=== PATIENT | female | born 1960 | race Caucasian/White ===

== ENCOUNTER 2019-02-09 18:22 | Inpatient (IN) ==
[2019-02-09] MEDS ORDERED: LABETALOL IV ONE (18:57)
[2019-02-09] MEDS ORDERED: ASPIRIN PO ONE (18:58)
[2019-02-09] MEDS ORDERED: LABETALOL ONE (19:02)
[2019-02-09 19:09] LABS: HEMATOCRIT 35.8 % (37.0-47.0); RBC 3.97 XMIL (4.2-5.4); WBC 9.69 X1000 (4.8-10.8)
[2019-02-09 19:10] LABS: BASO# 0.04 X1000 (0.0-0.2); BASO% 0.4 % (0.0-0.8); EOS# 0.32 X1000 (0.0-0.7); EOS% 3.3 % (0.0-10.0); IMM GRAN# 0.03 X1000 (0.0-0.04); IMM GRAN% 0.3 % (0.0-0.5); LYMPH# 2.99 X1000 (1.2-3.4); LYMPH% 30.9 % (20.5-51.1); MCH 30.2 PG (27-31); MCHC 33.5 g/dL (33-37); MCV 90.2 FL (81-99); MONO# 0.86 X1000 (0.11-0.59); MONO% 8.9 % (1.7-9.3); MPV 11.1 FL (7.4-10.4); NEUT# 5.45 X1000 (1.4-6.5); NEUT% 56.2 % (42.2-75.2); PLT 288 X1000 (130-400)
[2019-02-09 19:18] LABS: INR 1.23; PROTIME 16.1 Seconds (11.0-16.0)
[2019-02-09 19:48] LABS: PTT > 200.0 Seconds (22.3-41.8)
[2019-02-09 19:56] LABS: AGAP 13; ALBUMIN 4.1 g/dL (3.5-5.0); ALKALINE PHOSPHATASE 81 U/L (32-104); BUN 10 mg/dL (8-22); CALCIUM 8.9 mg/dL (8.8-10.2); CHLORIDE 105 mmol/L (98-107); COSMO 283; CREATININE 0.9 mg/dL (0.5-0.9); ESTIMATED GFR > 60; GLUCOSE 115 mg/dL (70-104); GOT 20 U/L (10-30); GPT 14 U/L (10-36); POTASSIUM 4.7 mmol/L (3.5-5.1); SODIUM 142 mmol/L (136-145); TCO2 25 mmol/L (25-35); TOTAL PROTEIN 7.7 g/dL (6.3-8.3)
[2019-02-09] MEDS ORDERED: NS 1,000 ML IV ONE ×2 (20:39→22:21)
--- NOTE | 2019-02-09 20:48 | Diag Imaging Result Doc PS360 ---
EXAM: CHEST-2 VIEWS INDICATION: CP TECHNIQUE: 2 views COMPARISON: 10/03/2017 FINDINGS: The right chest port is in stable position. The lungs are grossly clear. There is no discrete pleural fluid collection or pneumothorax. The cardiomediastinal silhouette and central vasculature are grossly unremarkable. IMPRESSION: No evidence of acute pathology by plain radiograph. Electronically signed by Nitin Alonzo 02/09/2019 8:46 PM
[2019-02-09] MEDS ORDERED: APRESOLINE ONE (21:10)
[2019-02-09] MEDS ORDERED: APRESOLINE PO ONE ×2 (21:12→21:15)
[2019-02-09] MEDS ORDERED: APRESOLINE IV ONE (21:18)
[2019-02-09] MEDS ORDERED: ZOFRAN IV ONE (21:19)
[2019-02-09 21:32] LABS: PTT 27.7 Seconds (22.3-41.8)
[2019-02-09 21:41] LABS: PROTIME 13.7 Seconds (11.0-16.0)
--- NOTE | 2019-02-09 21:51 | PROVIDER DOCUMENTATION ---
This chart was entered by Lizbeth Colin Scribe, acting as scribe for Allison Hampton MD. HPI-General Adult - General Chief Complaint: General Adult Stated Complaint: BP, CHEST PAIN, N/V Time Seen by Provider: 02/09/19 19:10 Source: patient Allergies/Adverse Reactions: Patient Allergies Allergy/AdvReac Type Severity Reaction Status Date / Time moxifloxacin HCl * Allergy Severe ANAPHYLAXIS Verified 01/27/18 00:17 [From Avelox] doxycycline Allergy SWELLING Verified 01/27/18 00:17 latex Allergy Unknown Verified 01/27/18 00:17 pregabalin [From Lyrica] Allergy SWELLING Verified 01/27/18 00:17 sulfamethoxazole Allergy Unknown Verified 01/27/18 00:17 [From Septra] tramadol Allergy Unknown Verified 01/27/18 00:17 trimethoprim [From Septra] Allergy Unknown Verified 01/27/18 00:17 gabapentin [From Neurontin] AdvReac Intermediate dilurim Verified 01/27/18 00:17 promethazine AdvReac Mild dilerium Verified 01/27/18 00:17 codeine AdvReac NAUSEA/VOMI Verified 01/27/18 00:17 TING epinephrine AdvReac Unknown Verified 01/27/18 00:17 hydrocodone AdvReac NAUSEA/VOMI Verified 01/27/18 00:17 TING meperidine HCl * AdvReac NAUSEA/VOMI Verified 01/27/18 00:17 [From Demerol] TING Sulfa (Sulfonamide AdvReac Unknown Verified 01/27/18 00:17 Antibiotics) Home Medications: Home Medication List Medication Instructions Recorded Confirmed Last Taken Type Estradiol [Estrace] 1 mg PO HS 05/16/12 01/27/18 02/19/17 20:00 History Levothyroxine [Synthroid] 100 microgm PO DAILY 05/16/12 01/27/18 02/20/17 07:00 History Metoprolol Succinate E.r. [Toprol 50 mg PO DAILY 05/16/12 01/27/18 02/19/17 20:00 History Xl] Clonazepam [Klonopin] 0.5 mg PO HS 01/16/15 01/27/18 02/19/17 20:00 History Duloxetine [Cymbalta] 60 mg PO QHS 01/16/15 01/27/18 02/19/17 20:00 History Magnesium Cl D.r. [Slow-Mag] 64 mg PO DAILY 01/16/15 01/27/18 02/19/17 20:00 History Methyldopa 250 mg PO DAILY 01/16/15 01/27/18 02/19/17 20:00 History Potassium Gluconate 500 mg PO DAILY 01/16/15 01/27/18 02/19/17 20:00 History Clopidogrel Bisulfate [Plavix] 75 mg PO DAILY 12/21/15 01/27/18 02/19/17 20:00 History Morphine Sulfate [Morphine Sulfate 15 mg PO TID 12/21/15 12/18/17 02/20/17 08:00 History ER] Tizanidine HCl [Zanaflex] 2 tab PO TID 05/27/16 01/27/18 02/20/17 07:00 History 4 mg Amoxicillin/Pot Clavulanate 875 mg PO Q12HR #14 tab 01/26/18 01/27/18 Unknown Rx [Augmentin] Clindamycin [Cleocin] 300 mg PO Q6HR #30 cap 01/27/18 Unknown Rx Pantoprazole [Protonix] 40 mg PO DAILY@0700 01/27/18 01/27/18 Unknown History Azithromycin [Zithromax] 500 mg PO DAILY #7 tab 01/28/18 Unknown Rx - History of Present Illness -Gen Adult Nature of Presenting Problems: pt is a 59 yr old female presenting with complaint of elevated BP, headache, nausea and vomiting, pt reports ongoing since 01/25/19 after receiving immunoglo blin therapy for CIPD. pt reports she normally has 3 day headache and fatigue associated with therapy but this time is worse and longer than normal. pt reports feeling flu like symptoms since 01/25. pt has not reported to her neurologist or PCP. pt reports no improvement of blood pressure with additional doses of catapres. pt denies any chest pain or shortness of breath. pt reports her blood pressure is typically low in the morning but in the evening it is normally elevated. pt reports today BP kasey at 1200 instead. Location of Pain/Injury: reports: head. denies: chest Pain Radiation: reports: no radiation Quality of Pain: reports: throbbing Severity: reports: moderate Onset/Duration: reports: other (01/25/19) Timing: reports: still present, changing over time Context/Activities at Onset: reports: other (immunoglobulin therapy received) Modifying Factors: improves with: other medication (catapres x 2 without relief) Associated Symptoms: reports: fatigue, headaches, muscle aches, nausea, vomiting . denies: cough, diarrhea, fever/chills, shortness of breath Similar Symptoms Previously?: Yes Recently seen or treated by another doctor?: No Review of Systems - Adult - REVIEW OF SYSTEMS - ADULT Constitutional: reports: fatique. denies: fever Eyes: reports: no symptoms reported Ears, Nose, Mouth & Throat: denies: ear pain, sinus problem, throat pain Cardiovascular: denies: chest pain, palpitations, syncope Respiratory: denies: cough, shortness of breath Gastrointestinal: reports: nausea, vomiting. denies: abdominal pain, diarrhea Genitourinary: denies: dysuria, frequency, flank pain Musculoskeletal: denies: back pain, joint pain, neck pain Integumentary: reports: no symptoms reported Neurological: reports: headache/migraines. denies: dizziness/vertigo, seizure, syncope Psychiatric: reports: no symptoms reported Endocrine: reports: no symptoms reported Hematologic/Lymphatic: reports: no symptoms reported Allergic/Immunologic: reports: no symptoms reported All Other Systems: Reviewed and Negative Past History - Adult - PAST MEDICAL HISTORY-ADULT Review of Records: reports: Old Records Reviewed, Nursing Assessment Review, Medications Reviewed, Social history reviewed & non-contributory. Major Childhood Illnesses: reports: denies history Cardiovascular: reports: CAD, HTN, CA Respiratory: reports: asthma, COPD Gastrointestinal: reports: GERD Obstetrical/Gynecological: reports: denies history Genitourinary: reports: denies history Musculoskeletal: reports: chronic pain, fibromyalgia, other fractures (left ankle fracture) Neurological: reports: degenerative disease, TIA, other (CIDP) Psychiatric: reports: denies history Endocrine/Immune: reports: denies history Other Conditions: reports: denies history - PRIOR SURGERIES/PROCEDURES Surgical/Procedure History: reports: hernia repair, orthopedic (extremity), other (esophageal banding) - PRIOR HOSPITALIZATIONS Prior Hospitalizations: reports: for similar symptoms - IMMUNIZATION STATUS Childhood Immunizations: See Nurse Assessment Flu Vaccine: See Nurse Assessment - FAMILY HISTORY Family History: reviewed, not pertinent - SOCIAL HISTORY Smoking: denies Substance Use: denies Living Situation: family Physical Exam-General - PHYSICAL EXAM-ADULT Initial Vital Signs Reviewed: Yes - CONSTITUTIONAL General Appearance: appears well, alert, no apparent distress - EYES Eyes: PERRL/EOMI - HEAD, EARS, NOSE, MOUTH & THROAT HENMT: normocephalic/atraumatic, moist mucous membranes, normal ENT inspection - NECK Neck: non-tender, full range of motion, supple, normal inspection - RESPIRATORY Respiratory: chest non-tender, lungs clear, normal breath sounds - CARDIOVASCULAR Cardiovascular: normal peripheral pulses, tachycardia - GASTROINTESTINAL (ABDOMEN) Abdominal Exam: normal bowel sounds, non tender, soft - LYMPHATIC Lymphatic: no adenopathy - MUSCULOSKELETAL Back Exam: normal inspection Extremity: normal range of motion, non-tender, normal inspection - SKIN Integumentary: normal color, normal turgor, warm/dry - NEUROLOGIC Neurologic: grossly normal - PSYCHIATRIC Psych/Mental Status: normal mood/affect Progress - PLAN OF CARE/RESULTS Progress/Plan/Lab Results: Vital Signs - 8 hr 02/09/19 18:26 Temperature 98.4 F Pulse Rate 109 H Respiratory Rate 18 Blood Pressure 185/99 O2 Sat by Pulse Oximetry 98 Laboratory Results - last 24 hr 02/09/19 02/09/19 02/09/19 18:45 18:45 18:45 WBC RBC Hgb Hct MCV MCH MCHC RDW Std Deviation Plt Count MPV Immature Gran % (Auto) Neut % (Auto) Lymph % (Auto) [place] % (Auto) Eos % (Auto) Baso % (Auto) Immature Gran # (Auto) Neut # (Auto) Lymph # (Auto) [place] # (Auto) Eos # (Auto) Baso # (Auto) PT 16.1 H INR 1.23 PTT (Actin FS) > 200.0 H* Sodium Potassium Chloride Carbon Dioxide Anion Gap BUN Creatinine Estimated GFR/1.73 m2 BUN/Creatinine Ratio Glucose Calculated Osmolality Calcium Total Bilirubin AST ALT Alkaline Phosphatase Creatine Kinase 103 Troponin T < 0.010 Total Protein Albumin Globulin Albumin/Globulin Ratio 02/09/19 02/09/19 18:45 18:45 WBC 9.69 RBC 3.97 L Hgb 12.0 Hct 35.8 L MCV 90.2 MCH 30.2 MCHC 33.5 RDW Std Deviation 13.0 Plt Count 288 MPV 11.1 H Immature Gran % (Auto) 0.3 Neut % (Auto) 56.2 Lymph % (Auto) 30.9 [place] % (Auto) 8.9 Eos % (Auto) 3.3 Baso % (Auto) 0.4 Immature Gran # (Auto) 0.03 Neut # (Auto) 5.45 Lymph # (Auto) 2.99 [place] # (Auto) 0.86 H Eos # (Auto) 0.32 Baso # (Auto) 0.04 PT INR PTT (Actin FS) Sodium 142 Potassium 4.7 Chloride 105 Carbon Dioxide 25 Anion Gap 13 BUN 10 Creatinine 0.9 Estimated GFR/1.73 m2 > 60 BUN/Creatinine Ratio 11 Glucose 115 H Calculated Osmolality 283 Calcium 8.9 Total Bilirubin 0.20 AST 20 ALT 14 Alkaline Phosphatase 81 Creatine Kinase Troponin T Total Protein 7.7 Albumin 4.1 Globulin 4.0 Albumin/Globulin Ratio 1.0 Orders Category Date Time Status cxr [CHEST-2 VIEWS] [RAD] Stat Exams 02/09/19 18:36 Taken CBC WITH ELECTRONIC DIFF [HEME] Stat Lab 02/09/19 18:45 Completed CK PROFILE [SP CHEM] Stat Lab 02/09/19 18:45 Completed COMPREHENSIVE METABOLIC PANEL [CHEM] Stat Lab 02/09/19 18:45 Completed PROTIME WITH INR [COAG] Stat Lab 02/09/19 18:45 Completed PTT [COAG] Stat Lab 02/09/19 18:45 Completed TROPONIN T Stat Lab 02/09/19 18:45 Completed Aspirin Med 02/09/19 18:58 Discontinued 325 mg PO NOW ONE Labetalol Med 02/09/19 18:57 Discontinued 10 mg IV NOW ONE Labetalol Med 02/09/19 19:02 Discontinued 100 mg .ROUTE .STK-MED ONE Pt with elevated BP given labetalol prior to my arrival. Little to no change. Given hydralazine with some change but they BP kasey again and chest pain started. EKG on start of chest pain showing no acute changes and troponin was normal. She additionally has started to have intractable nausea and vomiting. Patient was also given ativan as she does appear somewhat anxious but this made no change. Her HR is elevated in the 120s but she has been like that before in the past. 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 She also contrinues to ask for pain medications and states that she takes xanaflex at home. Given that we are unable to get BP down and patient has intractable NV will admit. Spoke to Dr Mahoney who accepted patient for admission. Wanted her started on Nitro drip. Result Diagrams: 02/09/19 18:45 02/09/19 18:45 - EKG 1 Time of EKG reading by physician:: 22:00 EKG Read and Signed by:: Allison Hampton EKG Interpretation (*Must complete 3 of following elements*): Abnormal Rate: 121 Rhythm: sinus tachycardia Sledge: normal QRS: normal [place] Interval: normal ST Wave: non-specific ST changes Prior EKG Comparison: unchanged from prior - XRAY 1 XRAY Study: Chest Impression: Normal ( Signed EXAM: CHEST-2 VIEWS INDICATION: CP TECHNIQUE: 2 views COMPARISON: 10/03/2017 FINDINGS: The right chest port is in stable position. The lungs are grossly clear. There is no discrete pleural fluid collection or pneumothorax. The cardiomediastinal silhouette and central vasculature are grossly unremarkable. IMPRESSION: No evidence of acute pathology by plain radiograph. Electronically signed by Nitin Alonzo 02/09/2019 8:46 PM 02/09/192045 Interpreting Physician: Nitin Alonzo MD Dictated Date/Time: 02/09/192044 cc: Sharyn Gamez; Se Muir) - CONSULTS/PCP/HOSPITALIST Notification #1 *Consult/PCP/Hospitalist*: Swetha Time Discussed: 23:44 Consult Disposition: Admit Departure - Departure Date of Disposition Decision: 02/09/19 Time of Disposition Decision: 23:44 DIAGNOSIS: Intractable nausea and vomiting, Malignant hypertensive urgency Disposition: ADMITTED INPATIENT 09 Certified Medical Emergency: Emergent Condition: Fair - Critical Care Note This patient required my direct & personal management of CC.: Yes Total Time (mins): 90 Critical Care Statement: This patient required my direct personal management to treat or rule out processes, the absence of which, could potentiallly result in sudden, clinically significant life or limb threatening deterioration. Attestation - Physician/ RONDA Attestation Patient care was provided by Advanced Practice Provider:: No The physician spent face to face time with patient:: Yes Advanced Practice Provider documentation review:: Supervising physician onsite and consulted in the evaluation and care of this patient. The physician did have a face to face encounter with the patient. This chart was documented by the indicated scribe, (Lizbeth Colin, [place]) and accurately reflects the services I performed and decisions made by me, Allison Hampton MD, as attested by the provider's signature.
[2019-02-09] MEDS ORDERED: ATIVAN IV ONE (22:22)
--- NOTE | 2019-02-09 22:34 | EKG Report ---
Test Performed on : 02/09/2019 6:36:14 PM Test Reason : cp Blood Pressure : / mmHG Vent. Rate : 093 BPM Atrial Rate : 093 BPM P-R Int : 136 ms QRS Dur : 080 ms QT Int : 362 ms P-R-T Axes : 034 000 047 degrees QTc Int : 450 ms Normal sinus rhythm. Inferior infarct (cited on or before 08-NOV-2009) Abnormal ECG When compared with ECG of 03-OCT-2017 17:52, No significant change was found Unconfirmed Result
[2019-02-09 23:32] LABS: UR AMPHETAMINES QUAL NONE DETECTED (NONE DETECT); UR BARBITUATES QUAL PRESUMPTIVE POSITIVE (NONE DETECT); UR BENZODIAZEPIN QUAL NONE DETECTED (NONE DETECT); UR CANNABINOIDS QUAL NONE DETECTED (NONE DETECT); UR COCAINE QUAL NONE DETECTED (NONE DETECT); UR METHADONE QUAL NONE DETECTED (NONE DETECT); UR METHAMPHETAMINE QUAL NONE DETECTED (NONE DETECT); UR OPIATES QUAL PRESUMPTIVE POSITIVE (NONE DETECT); UR OXYCODONE QUAL NONE DETECTED (NONE DETECT); UR PCP QUAL NONE DETECTED (NONE DETECT); UR PROPOXYPHENE QUAL NONE DETECTED (NONE DETECT); UR TCA QUAL NONE DETECTED (NONE DETECT)
[2019-02-09 23:40] LABS: BILIRUBIN URINE NEGATIVE (NEGATIVE); BLOOD URINE NEGATIVE (NEGATIVE); CLARITY CLEAR (CLEAR); COLOR YELLOW; KETONE URINE TRACE mg/dL (NEGATIVE); LEUKOCYTES URINE NEGATIVE (NEGATIVE); NITRITE URINE NEGATIVE (NEGATIVE); PROTEIN URINE TRACE mg/dL (NEGATIVE); SP GRAVITY URINE 1.005; UROBILINOGEN URINE NORMAL
[2019-02-09] MEDS ORDERED: FLEXERIL PO ONE (23:41)
[2019-02-09 23:43] LABS: URINE BACTERIA 1+ /HFP; URINE CAST NONE SEEN /LPF; URINE CRYSTAL NONE SEEN /HPF; URINE EPITHELIAL CELLS <10 /HPF (<10); URINE RBC <10 /HPF (<10); URINE SOURCE CLEAN CATCH; URINE WBC NS /HPF (<10); URINE YEAST NONE SEEN /HPF
[2019-02-09] MEDS ORDERED: PHENERGAN IM ONE (23:45)
[2019-02-10] MEDS: NIPRIDE 100 MG in D5W 250 ML IV SCH ×4 (00:31→05:08)
[2019-02-10] MEDS ORDERED: FLEXERIL ONE (03:46)
[2019-02-10] MEDS ORDERED: SODIUM CHLORIDE 0.9% INJ ONE (04:59)
[2019-02-10] MEDS ORDERED: PEPCID IV ONE (04:59)
--- NOTE | 2019-02-10 07:27 | EKG Report ---
Test Performed on : 02/10/2019 07:01:53 AM Test Reason : ST Blood Pressure : / mmHG Vent. Rate : 149 BPM Atrial Rate : 149 BPM P-R Int : 112 ms QRS Dur : 078 ms QT Int : 292 ms P-R-T Axes : 033 005 065 degrees QTc Int : 459 ms Sinus tachycardia. Possible Left atrial enlargement Nonspecific ST abnormality Abnormal ECG When compared with ECG of 09-FEB-2019 21:57, (Unconfirmed) No significant change was found Unconfirmed Result
[2019-02-10] MEDS ORDERED: PHENERGAN IM ONE ×2 (07:28→08:02)
[2019-02-10] MEDS ORDERED: LOPRESSOR PO ONE ×2 (07:29→08:02)
[2019-02-10] MEDS ORDERED: NS 1,000 ML IV ONE ×4 (07:37→15:03)
--- NOTE | 2019-02-10 08:36 | EKG Report ---
Test Performed on : 02/09/2019 9:57:24 PM Test Reason : cp Blood Pressure : / mmHG Vent. Rate : 121 BPM Atrial Rate : 121 BPM P-R Int : 136 ms QRS Dur : 078 ms QT Int : 330 ms P-R-T Axes : 033 003 029 degrees QTc Int : 468 ms Sinus tachycardia. Possible Left atrial enlargement Nonspecific ST abnormality Abnormal ECG When compared with ECG of 09-FEB-2019 18:36, (Unconfirmed) Criteria for Inferior infarct are no longer present Unconfirmed Result
[2019-02-10 08:43] LABS: BASO# 0.03 X1000 (0.0-0.2); BASO% 0.2 % (0.0-0.8); HEMATOCRIT 36.6 % (37.0-47.0); HEMOGLOBIN 12.8 g/dL (12.0-16.0); IMM GRAN# 0.05 X1000 (0.0-0.04); IMM GRAN% 0.3 % (0.0-0.5); LYMPH# 1.48 X1000 (1.2-3.4); LYMPH% 7.9 % (20.5-51.1); MCH 30.9 PG (27-31); MCV 88.4 FL (81-99); MONO# 1.01 X1000 (0.11-0.59); MONO% 5.4 % (1.7-9.3); MPV 10.9 FL (7.4-10.4); NEUT# 16.24 X1000 (1.4-6.5); NEUT% 86.2 % (42.2-75.2); PLT 336 X1000 (130-400); RBC 4.14 XMIL (4.2-5.4); RDW 13.3 % (11.5-14.5); WBC 18.81 X1000 (4.8-10.8)
--- NOTE | 2019-02-10 08:51 | HISTORY AND PHYSICAL ---
CHIEF COMPLAINT: Diarrhea since Friday, nausea and vomiting since 2 a.m. HISTORY OF PRESENT ILLNESS: Ms. 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 On Friday, she started with diarrhea and reports around 2 a.m., she started with the vomiting. She also reports that she fell 2 weeks ago, hit her head, and had some loss of consciousness for an unknown period of time. She reported to her neurologist's office, Dr. Rock. She reported they did a followup head CT and there were no acute changes. She also noted elevation in her blood pressure so she came to the ED at [place] where she was found to be hypertensive, 220s/100s. They did give her hydralazine, Ativan, and Lopressor with no relief from her blood pressure, and continued with nausea and vomiting. She was placed on a Nipride drip. She continues to be nauseous in the ED and is now tachycardic, so we are going to slowly wean off her Nipride, give her IV and Phenergan, and do a p.o. metoprolol until we can wean her off this Nipride and possible transfer to [facility] when beds are available for ICU or CIC with cardiac followup. PAST MEDICAL HISTORY: 1. Hypothyroidism. 2. Chronic bronchitis. 3. Mitral valve prolapse. 4. Dysautonomia. 5. Hypertension. 6. Coronary artery disease. 7. Gastroesophageal reflux disease. 8. TIA. 9. CIDP, on immunotherapy. PAST SURGICAL HISTORY: 1. Port placement. 2. Esophageal banding. 3. ORIF of the ankle. 4. Appendectomy. SOCIAL HISTORY: She is . No alcohol, tobacco, or illicit drug use. FAMILY HISTORY: Mother with diabetes, anemia, and hypertension. Brother with hypertension. Mother with CVA. ALLERGIES: 1. Avelox, anaphylaxis. 2. Doxycycline, swelling. 3. Latex. 4. Lyrica, swelling. 5. Septra. 6. Tramadol. 7. Neurontin, delirium. 8. Promethazine, delirium. 9. Codeine, nausea and vomiting. 10. Epinephrine. 11. Hydrocodone, nausea and vomiting. 12. Demerol, nausea and vomiting. 13. Sulfa, unknown. HOME MEDICATIONS: Have not been verified. REVIEW OF SYSTEMS: Twelve-point review of systems completely negative except for those mentioned in the HPI. The patient does report diarrhea, nausea, vomiting, chills, and headache. No chest pain. No shortness of breath. No palpitations. PHYSICAL EXAMINATION: VITAL SIGNS: Temperature is 98.4 degrees, heart rate is currently in the 150s, respirations 20, blood pressure was 150s/104, O2 is 97% on room air. GENERAL: Ms. Headley is an ill-appearing, 59-year-old, female who is lying on the stretcher in the ER, nauseous but in no acute distress. HEENT: Atraumatic, normocephalic. PERRL. NECK: Supple. Trachea midline. CARDIOVASCULAR: S1, S2 appreciated. No murmurs, gallops, rubs noted. RESPIRATORY: Lung sounds clear bilaterally. GASTROINTESTINAL: Soft, nontender, nondistended. Positive bowel sounds in 4 quadrants. EXTREMITIES: Lower extremities were negative for edema. The patient was moving all extremities well. No signs of clubbing or cyanosis. NEUROLOGIC: The patient is awake, alert, oriented. Followed commands. Answers all questions appropriately. DIAGNOSTIC DATA: Initial chest x-ray showed no evidence of acute pathology. Initial EKG, normal sinus rhythm. Followup EKG, sinus tachycardia at 149 beats per minute. LABORATORY DATA: White count 9, hemoglobin and hematocrit 12 and 35, platelet count is 288,000. Initial PTT was 200. After recheck, it was 27.7. She also had an elevated PT of 16.1. Recheck was 13. INR is 1. Sodium 142, potassium 4.7, BUN 10, creatinine 0.9, blood glucose is 115. Two sets of troponins have been negative. Toxicology screen was positive for opiates and barbiturates. ASSESSMENT AND PLAN: 1. Hypertensive urgency. The patient was placed on a Nipride drip. She does seem to be having some rebound tachycardia as well as some acceleration in her nausea and vomiting. We are going to try to wean that off at this time and then give her some oral and intravenous beta roxy. Admit her to [facility] or intensive care unit at [facility] with a cardiology consult. 2. Nausea, vomiting, diarrhea. We will continue with antiemetics. 3. Chronic inflammatory demyelinating polyneuropathy history, on immunotherapy with IVIG. 4. Coronary artery disease. 5. Chronic bronchitis. 6. Hypertension. 7. Dysautonomia. 8. Gastroesophageal reflux disease. 9. Transient ischemic attack. 10. Hypothyroidism. 11. Further recommendations to follow physician evaluation, laboratory and diagnostic data. ADDENDUM: at beside told ED staff this has happened before when she was withdrawing off of her zanaflex. Same reaction before with hypertension and tachycardia.. Dictated by DESIRE Barkley for Julian Posada MD cc: MD Se López
[2019-02-10 09:02] LABS: AGAP 21; ALBUMIN 4.6 g/dL (3.5-5.0); ALKALINE PHOSPHATASE 88 U/L (32-104); BUN 9 mg/dL (8-22); CALCIUM 9.3 mg/dL (8.8-10.2); CHLORIDE 102 mmol/L (98-107); COSMO 288; CREATININE 0.9 mg/dL (0.5-0.9); ESTIMATED GFR > 60; GLUCOSE 205 mg/dL (70-104); GOT 21 U/L (10-30); GPT 16 U/L (10-36); MAGNESIUM 1.3 mg/dL (1.5-2.7); POTASSIUM 3.7 mmol/L (3.5-5.1); SODIUM 142 mmol/L (136-145); TCO2 19 mmol/L (25-35)
[2019-02-10 09:39] LABS: LYMPHS 8 % (21-51); MONO 4 % (1-9); SEGS 88 % (42-75)
[2019-02-10] MEDS ORDERED: LOPRESSOR IV ONE (10:36)
[2019-02-10] MEDS ORDERED: CATAPRES PO SCH (13:00)
[2019-02-10] MEDS ORDERED: ZANAFLEX PO SCH (13:15)
[2019-02-10] MEDS ORDERED: ATIVAN IV ONE (13:30)
[2019-02-10] MEDS: ZOSYN 3.375 GM in NS 50 ML IV SCH ×2 (14:20→20:34)
[2019-02-10] MEDS ORDERED: LOPRESSOR IV PRN (14:29)
[2019-02-10] MEDS ORDERED: NS 1,000 ML ONE (14:58)
[2019-02-10] MEDS ORDERED: NEO-SYNEPHRINE 50 MG in NS 250 ML IV SCH (15:15)
[2019-02-10] MEDS ORDERED: LEVOPHED 8 MG in D5 1/2 NS 250 ML IV SCH (15:30)
[2019-02-10] MEDS: NS 1,000 ML IV SCH ×2 (15:40→19:14)
[2019-02-10 16:19] LABS: HEMOGLOBIN 10.2 g/dL (12.0-16.0); MCH 30.4 PG (27-31); MCV 89.3 FL (81-99); MPV 10.9 FL (7.4-10.4); RBC 3.36 XMIL (4.2-5.4); RDW 13.2 % (11.5-14.5); WBC 15.3 X1000 (4.8-10.8)
[2019-02-10 16:34] LABS: AGAP 11; ALKALINE PHOSPHATASE 65 U/L (32-104); BUN 9 mg/dL (8-22); CALCIUM 7.3 mg/dL (8.8-10.2); CHLORIDE 109 mmol/L (98-107); COSMO 280; CREATININE 0.9 mg/dL (0.5-0.9); ESTIMATED GFR > 60; GLUCOSE 130 mg/dL (70-104); GOT 17 U/L (10-30); GPT 10 U/L (10-36); MAGNESIUM 1.4 mg/dL (1.5-2.7); POTASSIUM 4.4 mmol/L (3.5-5.1); SODIUM 140 mmol/L (136-145); TCO2 21 mmol/L (25-35); TOTAL PROTEIN 5.6 g/dL (6.3-8.3)
--- NOTE | 2019-02-10 16:37 | PROGRESS NOTE ---
DATE: 02/10/2019 CRITICAL CARE NOTE: I was called to the ED secondary to the patient becoming hypotensive, 60s over 40s around 1500 hours. We initiated her on 2 L fluid bolus, initiating Al-Synephrine. After further speaking with the who is in the room, he did find her bottle of Zanaflex at home that she got filled, I believe on January 19. She had 180 tablets. There is only 1 left in the bottle. Ativan was given at 1419 and a dose of her Zanaflex at 1324. At [address] Posada was aware we were initiating Levophed (per poison control recommendations) and learning that she may have taken multilpe of Zanaflex, We have also called Poison Control. Rechecking EKG, CE, and others per EMR. Likely's ICU has now opened. We will be transferring [facility] to ICU. Dictated by DESIRE Barkley for Julian Posada MD cc: MD GONZALO López
[2019-02-10 16:48] LABS: ACETAMINOPHEN < 1.2 ug/mL (10-30); SALICYLATES < 3.00 mg/dL (3-10)
[2019-02-10 19:46] LABS: BILIRUBIN URINE NEGATIVE (NEGATIVE); BLOOD URINE 1+ (NEGATIVE); CLARITY CLEAR (CLEAR); COLOR YELLOW; KETONE URINE NEGATIVE (NEGATIVE); LEUKOCYTES URINE NEGATIVE (NEGATIVE); NITRITE URINE NEGATIVE (NEGATIVE); PROTEIN URINE TRACE mg/dL (NEGATIVE); UROBILINOGEN URINE NORMAL
[2019-02-10 19:58] LABS: URINE BACTERIA 1+ /HFP; URINE CAST NONE SEEN /LPF; URINE CRYSTAL NONE SEEN /HPF; URINE EPITHELIAL CELLS <10 /HPF (<10); URINE RBC <10 /HPF (<10); URINE SOURCE CATH; URINE YEAST NONE SEEN /HPF
[2019-02-10] MEDS: CYMBALTA PO SCH (20:37)
[2019-02-10] MEDS: ESTRACE PO SCH (20:37)
[2019-02-10] MEDS ORDERED: LOPRESSOR PO SCH (21:00)
[2019-02-10] MEDS ORDERED: KLONOPIN PO SCH (21:00)
--- NOTE | 2019-02-10 22:09 | HISTORY AND PHYSICAL ---
ADDENDUM: Patient seen and examined by myself. Full note dictated and discussed with nurse practitioner. The patient presented to the hospital with nausea and vomiting for the past couple of days. It seemed to continue to be worsening. Initially in the ER, blood pressures were 220s over 100s. She was placed on Nipride to keep her blood pressure lower, as nothing seems to be improving. The plan was to admit her to the hospital for hypertensive urgency as well as tachycardia. She continued to be difficult to treat. Her blood pressure actually dropped quite low, in the 50s and 60s systolic. It was at this point that her notes that she tends to overtake her Zanaflex, and apparently has taken an entire month's prescription of 4 mg 3 times daily in the past 10 days. Zanaflex certainly can cause rebound hypotension. We talked to Poison Control. We are going to place her on Levophed, which she has tolerated very well. Blood pressures are improving. We will place her in the ICU and follow course cc: Julian Posada MD MTDD
[2019-02-11] MEDS: ZOSYN 3.375 GM in NS 50 ML IV SCH ×4 (02:31→20:34)
[2019-02-11] MEDS: NS 1,000 ML IV SCH ×3 (02:31→20:35)
[2019-02-11] MEDS: SYNTHROID PO SCH ×2 (06:04→06:05)
[2019-02-11] MEDS: PROTONIX PO SCH (06:05)
[2019-02-11] MEDS ORDERED: APRESOLINE IV ONE (06:20)
[2019-02-11] MEDS: SLOW-MAG PO SCH (08:00)
[2019-02-11] MEDS: CATAPRES PO SCH ×3 (08:00→17:14)
[2019-02-11] MEDS ORDERED: ZOFRAN ODT PO PRN (08:38)
--- NOTE | 2019-02-11 08:40 | EKG Report ---
Test Performed on : 02/10/2019 3:27:30 PM Test Reason : ER Blood Pressure : / mmHG Vent. Rate : 074 BPM Atrial Rate : 074 BPM P-R Int : 124 ms QRS Dur : 074 ms QT Int : 494 ms P-R-T Axes : 037 031 088 degrees QTc Int : 548 ms Normal sinus rhythm. Nonspecific ST and T wave abnormality Prolonged QT Abnormal ECG When compared with ECG of 10-FEB-2019 07:01, (Unconfirmed) Vent. rate has decreased BY 75 BPM T wave inversion now evident in Anterior leads Unconfirmed Result
[2019-02-11] MEDS ORDERED: SYNTHROID PO SCH (09:00)
[2019-02-11] MEDS: PATIENT'S OWN MED PO SCH (09:28)
[2019-02-11] MEDS: ZANAFLEX PO SCH ×2 (09:37→17:14)
[2019-02-11] MEDS: TOPROL XL PO SCH (15:10)
--- NOTE | 2019-02-11 20:09 | PROGRESS NOTE ---
DATE: 02/11/2019 SUBJECTIVE: Patient notes that she is feeling a lot better. Denies any fevers, chills. Denies overtaking her Zanaflex. States she typically takes 24 mg a day. OBJECTIVE: Vital Signs: Temperature 98, pulse 99 to 130, BP 197/93. General: Patient is awake. She is much more alert and oriented. HEENT: Normocephalic. Neck: Supple. Cardiovascular: Regular rate. No murmurs. Chest: Clear and nonlabored. Abdomen: Soft. Extremities: Moves all extremities. ASSESSMENT: 1. Supraventricular tachycardia. Currently, her heart rate is at 99, but has been as elevated as 130s. We will continue to follow. 2. Hypertensive urgency. Blood pressures were elevated. We will restart her home medications for her blood pressure. Expect that her rebound hypertension was due to her acute withdrawal of Zanaflex. 3. Nausea and vomiting, appears improving. 4. Chronic inflammatory demyelinating polyneuropathy, by history. 5. Leukocytosis. 6. Chronic bronchitis. 7. Dysautonomia. 8. Fibromyalgia. PLAN: 1. Will continue patient in the hospital. 2. Will follow her blood pressures. 3. Will slowly restart her home medications. 4. Further orders as needed. cc: Julian Posada MD
[2019-02-11] MEDS: CYMBALTA PO SCH (20:34)
[2019-02-11] MEDS: ESTRACE PO SCH (20:36)
[2019-02-12] MEDS: ZANAFLEX PO SCH ×2 (01:03→11:00)
[2019-02-12] MEDS: ZOSYN 3.375 GM in NS 50 ML IV SCH ×2 (01:03→08:32)
[2019-02-12] MEDS: NS 1,000 ML IV SCH (05:05)
[2019-02-12 05:55] LABS: BASO# 0.03 X1000 (0.0-0.2); BASO% 0.2 % (0.0-0.8); EOS# 0.24 X1000 (0.0-0.7); EOS% 1.7 % (0.0-10.0); HEMATOCRIT 30.5 % (37.0-47.0); IMM GRAN# 0.04 X1000 (0.0-0.04); IMM GRAN% 0.3 % (0.0-0.5); LYMPH# 3.49 X1000 (1.2-3.4); LYMPH% 25.2 % (20.5-51.1); MCH 30.1 PG (27-31); MCHC 32.8 g/dL (33-37); MCV 91.9 FL (81-99); MONO# 1.26 X1000 (0.11-0.59); MONO% 9.1 % (1.7-9.3); MPV 11.2 FL (7.4-10.4); NEUT# 8.81 X1000 (1.4-6.5); NEUT% 63.5 % (42.2-75.2); PLT 251 X1000 (130-400); RBC 3.32 XMIL (4.2-5.4); RDW 14.5 % (11.5-14.5); WBC 13.87 X1000 (4.8-10.8)
[2019-02-12] MEDS: SYNTHROID PO SCH ×2 (06:01)
[2019-02-12] MEDS: PROTONIX PO SCH (06:01)
[2019-02-12 06:32] LABS: AGAP 11; ALBUMIN 3.3 g/dL (3.5-5.0); ALKALINE PHOSPHATASE 66 U/L (32-104); BUN 6 mg/dL (8-22); CALCIUM 7.7 mg/dL (8.8-10.2); CHLORIDE 112 mmol/L (98-107); COSMO 286; CREATININE 0.8 mg/dL (0.5-0.9); ESTIMATED GFR > 60; GLUCOSE 98 mg/dL (70-104); GOT 59 U/L (10-30); GPT 29 U/L (10-36); POTASSIUM 3.4 mmol/L (3.5-5.1); SODIUM 145 mmol/L (136-145); TCO2 23 mmol/L (25-35)
[2019-02-12] MEDS: PATIENT'S OWN MED PO SCH (08:32)
[2019-02-12] MEDS: SLOW-MAG PO SCH (08:32)
[2019-02-12] MEDS: TOPROL XL PO SCH (08:33)
[2019-02-12] MEDS: CATAPRES PO SCH (08:33)
[2019-02-12 13:18] VITALS: BP 115/65
--- NOTE | 2019-02-13 05:48 | DISCHARGE SUMMARY ---
ADMISSION DATE: 02/10/2019 DISCHARGE DATE: 02/12/2019 DISCHARGE DIAGNOSES: 1. Nausea, vomiting, appears resolved. 2. Hypertensive urgency, resolved. 3. Zanaflex withdrawal, resolved. 4. Hypothyroidism, stable. 5. Mitral valve prolapse. 6. Dysautonomia. 7. Hypertension. 8. Known coronary artery disease. 9. Chronic reflux. DISCHARGE MEDICATIONS: No changes were made on patient's home medications as noted on her discharge medication list. CONSULTATIONS: None. PROCEDURES: None. BRIEF HOSPITAL COURSE: The patient is a 59-year-old female who presented to the hospital with hypertensive emergency. This was felt to be secondary to Zanaflex withdrawal. She was placed initially on Nipride. However, her blood pressure dropped quite quickly from 200s to 220s, to 50 systolic. She was placed on Levophed, placed in the ICU. Thankfully, she had an uneventful hospital course. Over the 1st 12 to 18 hours of admission, she became much more awake, alert, oriented, was back to her usual self; therefore, was restarted back on her home medications to include Zanaflex. At that point, her symptoms began to resolve. On discharge she is awake, alert. She is in no distress. She is ambulating without any difficulty. DISPOSITION: Patient will be discharged home. She will continue all of her home medications without any changes, and will follow up outpatient with her primary care. cc: Julian Posada MD
== END 2019-02-12 12:30 | disposition home or self-care (01) | DRG 305 ==
LOC: P.ED 18:22 → P.EDIPHOLD 02-10 00:28 → P.ICU 02-10 16:04
PROVIDERS: ATTEND Family Medicine